=== PATIENT | male | born 1985 | race Two or more races ===

== ENCOUNTER 2021-07-13 13:37 | Outpatient (CLI) | payer OTHER ==
[2021-07-15 10:49] LABS: VARICELLA IGG ANTIBODY 435 Index (135 - 165)
[2021-07-18 12:06] LABS: VARICELLA IGM ANTIBODY <0.91 index (0.00-0.90)
== END 2021-07-13 19:07 | disposition home or self-care (01) ==
LOC: MLB 13:37
PROVIDERS: ATTEND Family Medicine
DX: Z13.0 Encounter for screening for diseases of the blood and blood-forming organs and certain disorders involving the immune mechanism (principal)
CPT/HCPCS: 36415; 86592; 86735; 86765; 86787

== ENCOUNTER 2021-07-27 15:40 | Outpatient (CLI) | payer OTHER | END 2021-07-27 17:55 | disposition home or self-care (01) | LOC: MRD 15:40 | PROVIDERS: ATTEND Family Medicine | DX: R76.12 Nonspecific reaction to cell mediated immunity measurement of gamma interferon antigen response without active tuberculosis (principal) | CPT/HCPCS: 71046 ==